=== PATIENT | female | born 1940 | race Caucasian/White ===

== ENCOUNTER 2016-10-16 11:40 | Inpatient (IN) | payer OTHER ==
[~2016-10-16] VITALS: Ht 162.6 cm; Wt 93.4 kg
--- NOTE | 2016-10-16 20:35 | NUR ---
GPS ADMISSION NOTE ADMITTED THIS 76 Y/O FEMALE FROM [facility] . PATIENT ADMITTED ON A 5150 HOLD FOR DTS. PER HOLD PATIENT STATES THAT SHE IS UNDER STRESS IN HER FINANCIAL SITUATION. PATIENT STATES " I DON'T KNOW WHAT I HAVE TO LIVE FOR". PATIENT STATED IF DISCHARGED HOME, WILL TRY TO KILL HERSELF. PATIENT HAS ACCESS TO NARCOTIC MEDICATION. PATIENT BREATHING IS UNLABORED. NO SOB. V/S STABLE. UPON FACE TO FACE. PATIENT IS ALERT AND ORIENTED X3. AMBULATORY WITH WALKER. PATIENT IS UNDER THE PSYCHIATRIC CARE OF DR. LINDA AND THE MEDICAL CARE OF DR GLOVER. PATIENT BELONGINGS WERE INVENTORIED AND CHECKED FOR CONTRABAND. CONTRABAND FOUND AND PUT IT IN SAFE LOCKED CABINET. SKIN/BODY ASSESSMENT DONE. NOTED REDNESS ON ABDOMINALFOLDS, BREASTFOLDS, COCCYX AREA. WOUND CONSULT TRIGGERED. MRSA DONE. PATIENT BED SIDE RAILS ARE UP X 2 FOR SAFETY. PATIENT BED IS LOCKED AND IN LOW POSITION. WILL CONTINUE TO MONITOR FOR SAFETY AND BEHAVIOR [id number].
[2016-10-16] MEDS ORDERED: MAGNESIUM HYDROXIDE 30 ML UDC PO PRN (22:00)
[2016-10-16] MEDS ORDERED: LORAZEPAM 0.5 MG TABLET PO PRN (22:00)
[2016-10-16] MEDS ORDERED: TEMAZEPAM 7.5 MG CAPSULE ONE (23:28)
[2016-10-16] MEDS: TEMAZEPAM 7.5 MG CAPSULE PO PRN (23:33)
[2016-10-16] MEDS ORDERED: BUPR-51 PO (23:55)
[2016-10-16] MEDS ORDERED: GABA600T2 PO (23:55)
[2016-10-16] MEDS ORDERED: OMEP40CA37 PO (23:55)
[2016-10-16] MEDS ORDERED: NAPR500T3 PO (23:55)
[2016-10-16] MEDS ORDERED: LISI10TA5 PO (23:55)
[2016-10-16] MEDS ORDERED: MORP30TA PO (23:55)
[2016-10-16] MEDS ORDERED: ASPI325T2 PO (23:55)
[2016-10-16] MEDS ORDERED: MORP15TA7 PO (23:55)
[2016-10-16] MEDS ORDERED: DULO60CA45 PO (23:55)
[2016-10-16] MEDS ORDERED: OXYB5TAB11 PO (23:55)
[2016-10-17] MEDS ORDERED: ACETAMINOPHEN 325 MG TABLET ONE (00:38)
[2016-10-17] MEDS: ACETAMINOPHEN 325 MG TABLET PO PRN ×2 (00:42→21:03)
[2016-10-17 02:42] VITALS: BP 125/73
[2016-10-17 07:12] LABS: BASOPHILS % (AUTO) 0.4 % (0.0-2.0); EOSINOPHILS # (AUTO) 0.2 /CMM (0.0-0.7); EOSINOPHILS % (AUTO) 2.7 % (0.0-6.0); HEMATOCRIT 46 % (33-45); HEMOGLOBIN 15.4 g/dL (11.5-14.8); LYMPHOCYTES # (AUTO) 1.9 /CMM (0.8-4.8); LYMPHOCYTES % (AUTO) 25.6 % (20.0-44.0); MEAN CORPUSCULAR HEMOGLOBIN 31 PG (26.0-33.0); MEAN CORPUSCULAR HGB CONC 34 g/dl (31.0-36.0); MEAN CORPUSCULAR VOLUME 91 fL (82-100); MONOCYTES # (AUTO) 0.7 /CMM (0.1-1.30); MONOCYTES % (AUTO) 8.8 % (2.0-12.0); NEUTROPHILS # (AUTO) 4.7 /CMM (1.8-8.9); NEUTROPHILS % (AUTO) 62.5 % (43.0-81.0); PLATELET COUNT (AUTO) 203 /CMM (150-450); RDW COEFFICIENT OF VARIATION 13.5 (11.5-15.0); RED BLOOD CELL COUNT(AUTO) 5.04 MIL/uL (4.0-5.2); WHITE BLOOD COUNT (AUTO) 7.5 K/uL (4.3-11.0)
[2016-10-17 07:40] LABS: ALBUMIN 3.6 g/dL (3.4-5.0); BILIRUBIN,TOTAL 0.5 mg/dL (0.2-1.0); CALCIUM, SERUM 9.3 mg/dL (8.5-10.1); CREATININE 0.8 mg/dL (0.6-1.3); POTASSIUM 3.9 mmol/L (3.5-5.1); TOTAL PROTEIN, SERUM 6.9 g/dL (6.4-8.2)
[2016-10-17 08:00] VITALS: BP 113/66
[2016-10-17] MEDS: PANTOPRAZOLE 40 MG TABLET.DR PO SCH ×2 (08:22→10:56)
[2016-10-17] MEDS: MORPHINE SULFATE IR 15 MG TABLET PO PRN ×3 (08:50→23:35)
[2016-10-17] MEDS: DULOXETINE HCL 30 MG CAPSULE.DR PO SCH (09:00)
[2016-10-17] MEDS: ASPIRIN 325 MG TABLET PO SCH (09:00)
[2016-10-17] MEDS ORDERED: DULOXETINE HCL 30 MG CAPSULE.DR PO SCH (09:00)
[2016-10-17] MEDS: LISINOPRIL (10MG) 10 MG TABLET PO SCH (09:00)
[2016-10-17] MEDS: NAPROXEN 500 MG TABLET PO SCH ×2 (09:00→16:13)
--- NOTE | 2016-10-17 09:39 | NUR ---
GPS RN NOTE: PATIENT WAS SEEN AND EXAMINE BY DR GLOVER PT GETS EASILY AGITATED, RESTLESS IRRITABLE, SCREAMING AND YELLING AT TIMES REFUSED MORNING MEDICATIONS PT STATED" IM TAKING ONLY MORPHINE , GERD MEDICATION AND ATIVAN " THATS ALL I NEED PT REQUESTED FLEET ENEMA DR HANSON NO ORDERS AT THIS TIME WILL CONTINUE MONITORING FOR SAFETY AND BEHAVIOR Q 15 MIN
--- NOTE | 2016-10-17 12:32 | NUR ---
GPS RN NOTE: PATIENT REFUSED SKIN ASSESSMENT , Z GUARD EXPLAIN RISK AND BENEFITS PT CONTINUE TO REFUSED
[2016-10-17] MEDS ORDERED: GABAPENTIN 300 MG CAPSULE PO SCH (14:30)
[2016-10-17] MEDS ORDERED: BISACODYL SUPP (10 MG) 10 MG/SUPP.RECT SUPP.RECT RC PRN (15:00)
[2016-10-17] MEDS ORDERED: BISACODYL (5 MG) 5 MG TABLET.DR PO PRN (15:00)
[2016-10-17] MEDS: POLYETHYLENE GLYCOL 3350 17 GM POWD.PACK PO SCH ×2 (15:00→22:26)
[2016-10-17] MEDS: QUETIAPINE FUMARATE 25 MG TABLET PO SCH (16:13)
[2016-10-17] MEDS: LORAZEPAM 0.5 MG TABLET PO PRN (16:13)
--- NOTE | 2016-10-17 17:35 | NUR ---
GPS RN NOTE: PATIENT COMPLAINING OF GENERALIZED PAIN MORPHINE 30 MG PO PRN Q 8 HR WILL CONTINUE MONITORING FOR SAFETY AND BEHAVIOR Q 15 MIN
[2016-10-17 20:00] VITALS: BP 143/77
[2016-10-17] MEDS ORDERED: TRAZODONE 50 MG TABLET PO SCH (22:00)
[2016-10-17] MEDS: TEMAZEPAM 7.5 MG CAPSULE PO PRN (22:27)
[2016-10-18] MEDS: LORAZEPAM 0.5 MG TABLET PO PRN ×3 (00:31→17:26)
[2016-10-18] MEDS: MAG HYDROX/AL HYDROX/SIMETH 30 ML UDC PO PRN (04:58)
[2016-10-18] MEDS: ACETAMINOPHEN 325 MG TABLET PO PRN (04:58)
[2016-10-18 08:00] VITALS: BP 157/75
[2016-10-18] MEDS: DULOXETINE HCL 30 MG CAPSULE.DR PO SCH (08:11)
[2016-10-18] MEDS: PANTOPRAZOLE 40 MG TABLET.DR PO SCH (08:12)
[2016-10-18] MEDS: LISINOPRIL (10MG) 10 MG TABLET PO SCH (08:13)
[2016-10-18] MEDS: QUETIAPINE FUMARATE 25 MG TABLET PO SCH ×4 (08:14→21:46)
[2016-10-18] MEDS: MORPHINE SULFATE IR 15 MG TABLET PO PRN ×3 (08:14→23:45)
[2016-10-18] MEDS: ASPIRIN 325 MG TABLET PO SCH (08:15)
[2016-10-18] MEDS: NAPROXEN 500 MG TABLET PO SCH ×2 (08:17→16:29)
--- NOTE | 2016-10-18 10:39 | NUR ---
GPS RN NOTE: PT REQUESTING MEDICATIONS FOR ANXIETY ATIVAN 1 MG PO PRN GIVEN ORDERS WILL CONTINUE MONITORING FOR SAFETY AND BEHAVIOR Q 15 MIN
[2016-10-18] MEDS ORDERED: Z GUARD REMEDY 2 OZ OINT TP PRN (11:00)
[2016-10-18 11:06] VITALS: BP 124/82
--- NOTE | 2016-10-18 17:27 | NUR ---
GPS RN NOTE: PATIENT IN THE ROOM AGITATED VERBALLY ABUSIVE, HYPERVERBAL THREATENING STAFF, THROUGH PITCH OR WATER ON THE FLOOR UNABLE TO CONTROL BEHAVIOR ATIVAN 1 MG PO PRN Q 6 HR GIVEN WILL CONTINUE MONITORING FOR SAFETY AN BEHAVIOR Q 15 MIN
[2016-10-18] MEDS ORDERED: GABAPENTIN 300 MG CAPSULE PO SCH (18:59)
[2016-10-18] MEDS: GABAPENTIN 300 MG CAPSULE PO SCH (19:04)
[2016-10-18 20:16] VITALS: BP 121/72
[2016-10-18] MEDS: POLYETHYLENE GLYCOL 3350 17 GM POWD.PACK PO SCH (21:45)
--- NOTE | 2016-10-19 00:27 | NUR ---
Pt has been quite anxious, argumentative about pain meds, & with impaired insight/judgment. She is compliant with meds.
[2016-10-19] MEDS: GABAPENTIN 300 MG CAPSULE PO SCH ×4 (01:06→21:01)
[2016-10-19 01:24] LABS: APPEARANCE,URINE CLEAR (CLEAR); BILIRUBIN,URINE NEGATIVE (NEGATIVE); BLOOD, URINE NEGATIVE Ery/uL (NEGATIVE); COLOR,URINE YELLOW (YELLOW); KETONES,URINE NEGATIVE (NEGATIVE); LEUKOCYTE ESTERASE ,URINE NEGATIVE (NEGATIVE); NITRITE, URINE NEGATIVE (NEGATIVE); PROTEIN,URINE NEGATIVE (NEGATIVE); UGLUCOSE NEGATIVE (NEGATIVE); UROBILINOGEN,URINE 0.2 EU/dL (0.2)
[2016-10-19] MEDS: ACETAMINOPHEN 325 MG TABLET PO PRN (02:49)
[2016-10-19] MEDS: LORAZEPAM 0.5 MG TABLET PO PRN ×4 (03:16→22:23)
--- NOTE | 2016-10-19 03:18 | NUR ---
GPS RN NOTE, PATIENT HAS A COMPLAINT OF FEELING ANXIOUS AND WOULD LIKE MEDICATION AT THIS TIME. PATIENT VITAL SIGNS ARE STABLE. GAVE ATIVAN 1MG PO Q6HR PRN ORDERED. WILL REASSESS FOR ANXIETY AND I WILL CONTINUE TO MONITOR THIS PATIENT.
[2016-10-19 08:00] VITALS: BP 145/72
[2016-10-19] MEDS: QUETIAPINE FUMARATE 25 MG TABLET PO SCH ×4 (08:00→21:07)
[2016-10-19] MEDS: ASPIRIN 325 MG TABLET PO SCH (08:05)
[2016-10-19] MEDS: DULOXETINE HCL 30 MG CAPSULE.DR PO SCH (08:06)
[2016-10-19] MEDS: PANTOPRAZOLE 40 MG TABLET.DR PO SCH (08:06)
[2016-10-19] MEDS: NAPROXEN 500 MG TABLET PO SCH ×2 (08:07→16:29)
[2016-10-19] MEDS: MORPHINE SULFATE IR 15 MG TABLET PO PRN ×3 (08:08→23:37)
[2016-10-19] MEDS: LISINOPRIL (10MG) 10 MG TABLET PO SCH (08:31)
--- NOTE | 2016-10-19 08:39 | NUR ---
GPS/RN PATIENT REPORTS 10/10 GENERALIZED PAIN, REQUESTED MORPHINE PO, ADMINISTERED ORDERED, WILL CONTINUE TO MONITOR.
--- NOTE | 2016-10-19 09:12 | NUR ---
GPS/RN PATIENT REPORTS NO BM FOR 7 DAYS, HOWEVER, DOCUMENTATION STATES SHE HAD BM THIS A.M. ADMINISTERED DUCOLAX 2 TABS REQUESTED,WILL CONTINUE TO MONITOR.
--- NOTE | 2016-10-19 09:22 | NUR ---
GPS/RN PATIENT PRESENTS WITH ACUTE AGITATION, ANXIETY, VERBALLY ABUSIVE, ADMINISTERED ATIVAN PO ORDERED, WILL CONTINUE TO MONITOR.
--- NOTE | 2016-10-19 11:55 | NUR ---
Initial discharge plan: Pt.lives with her , Cain Goodman [phone] at [address] [facility] [id number] and will return home upon discharge. SW spoke with and he is supportive and wants pt. home. CARLOS will follow up with MD and pt. and will schedule for safe and proper discharge.
--- NOTE | 2016-10-19 15:51 | NUR ---
GPS/RN PATIENT PRESENTS WITH ACUTE AGITATION, ANXIETY,CONTINUES TO BE VERBALLY ABUSIVE, UNABLE TO REDIRECT, ADMINISTERED ATIVAN PO ORDERED, WILL CONTINUE TO MONITOR.
--- NOTE | 2016-10-19 16:06 | NUR ---
UR Update: SANAM faxed clinicals (H&P's, medication list, 5150 hold, face sheet) to [facility] PHONE [phone] FAX# [phone]. Sanam will follow up. AUTH# [id number].
--- NOTE | 2016-10-19 16:30 | NUR ---
GPS/RN PATIENT IRRITABLE, AGITATED, REPORTS 10/10 GENERALIZED PAIN, REQUESTED MORPHINE PO, ADMINISTERED ORDERED, WILL CONTINUE TO MONITOR.
[2016-10-19 16:41] VITALS: BP 164/89
--- NOTE | 2016-10-19 17:14 | NUR ---
GPS/RN ADMINISTERED WATER ENEMA X [address] GLOVER, TOLERATED WELL, NO DISTRESS, WILL CONTINUE TO MONITOR.
[2016-10-19 20:00] VITALS: BP 119/70
[2016-10-19] MEDS: MAG HYDROX/AL HYDROX/SIMETH 30 ML UDC PO PRN (21:01)
--- NOTE | 2016-10-19 21:01 | NUR ---
GPS RN NOTES: PATIENT COMPLAINED OF "GERD PAIN". ADMINISTERED MAALOX PO. WILL CONT TO MONITOR.
[2016-10-19] MEDS: POLYETHYLENE GLYCOL 3350 17 GM POWD.PACK PO SCH (22:00)
--- NOTE | 2016-10-19 22:22 | NUR ---
RN NOTES: PATIENT WALKED TOWARDS NURSES' STATION, APPEARS VERY HOSTILE AND RESTLESS, STATES, "I CAN'T TAKE THIS ANYMORE, YOU ARE PLAYING GAMES WITH MY MEDICATIONS," AND PATIENT KEPT SAYING THAT SHE IS IN PAIN ALL OVER, AND THAT SHE WAS BEING "FORGOTTEN". REITERATED TO HE THAT MORPHINE IS EVERY 8 HRS, AND THE LAST TIME IT WAS GIVEN WAS AT 1628. PATIENT THEN SAID THAT SHE IS HAVING MORPHINE WITHDRAWALS, AND CONTINUES TO BE VERBALLY ABUSIVE. REDIRECTED TO BED AND GIVEN ATIVAN. PROVIDED FOR SAFETY, SITTER AT BEDSIDE. WILL CONT TO MONITOR.
--- NOTE | 2016-10-19 23:25 | NUR ---
GPS RN NOTES: PATIENT APPROACHED THE NURSE IN THE STATION DEMANDING FOR HER MORPHINE MEDICATION. SHE STATED IN A LOUD VOICE, "I WANT MY MEDICATION RIGHT NOW, YOU GUYS ARE KEEPING THE MEDICATIONS AWAY FROM ME!" SILVIA ARCEO EXPLAINED TO HER THAT HER MEDICATION WILL NOW BE GIVEN IT IS ALREADY DUE TO BE GIVEN. PATIENT HAD THE MORPHINE SULFATE IR 15MG TAB AT 1628PM DURING THE DAY SHIFT. WHILE PATIENT WAS WAITING OUTSIDE THE NURSES STATION, SHE KEEPS ON TALKING THAT HER ROOMMATE HAD THE PRIVILEGE OF USING HER CELLPHONE AND THAT HER ROOMMATE IS BEING NOISY IN THE ROOM SHE IS TALKING ON THE PHONE. PATIENT STARTING TO BECOME AGGRESSIVE, THREATENING IN LOUD VOICE. NURSES TRIED TO REDIRECT THE PATIENT TO THE ROOM, BUT PATIENT REFUSED TO BE HELPED, INSTEAD SHE SCREAMED AND YELLED AT THE NURSES EVEN LOUDER. PATIENT WAS THEN ESCORTED AND PHYSICALLY HELD SHE WAS REDIRECTED BACK TO HER ROOM. 2337- AT THE PATIENT'S ROOM, SILVIA ARCEO ADMINISTERED THE MORPHINE SULFATE MEDICATION ORDERED. 2340- PATIENT STORMED INTO THE NURSES STATION, DEMANDING THAT SHE WANTS TO CALL THE POLICE AND 911. SHE WAS ALREADY AGITATED, YELLING AND SCREAMING AT THE STAFF, THREATENING THAT INVESTIGATION WILL BE DONE TOMORROW. NURSE DATABASE DBA, JAVI AWARE OF THE SITUATION. 2354- DR. LINDA INFORMED OF THE PATIENT'S BEHAVIOR, WITH ORDERS TO GIVE ZYPREXA 3MG IM ONE TIME DOSE. PATIENT REFUSED TO HAVE THE MEDICATION ADMINISTERED, SHE WAS THEN ASSISTED PHYSICALLY INTO THE BED SO MEDICATION CAN BE ADMINISTERED. PATIENT REFUSED TO HAVE HER VITAL SIGNS CHECKED. 1:1 SITTER CONTINUED FOR PATIENT'S SAFETY.
--- NOTE | 2016-10-19 23:37 | NUR ---
RN NOTES: PATIENT WENT UP TO NURSES' STATION, VERY HOSTILE AND DEMANDED FOR HER MORPHINE, STATING SHE HAS "PAIN EVERYWHERE". CALMLY TOLD PATIENT THAT IT IS DUE AT THIS TIME AND WILL GIVE IT TO HER NOW. PATIENT CONTINUES TO BE VERBALLY ABUSIVE TO RN AND MERCHANT PATROLLER, AND SAID THAT THE OTHER PATIENT IN THE ROOM WITH HER "IS LIKE A BALDEV, USING HER PHONE!". TOLD PATIENT THAT SHE WILL BE GIVEN MORPHINE PO IN HER ROOM, BUT PATIENT REFUSED TO MOVE FROM WHERE SHE WAS STANDING AT THE STATION, WITH A THREATENING POSTURE. CNAS THEN TRIED TO REDIRECT HER TO HER ROOM, TO WHICH SHE REACTED ANGRILY AND KEPT YELLING. ONCE IN THE ROOM, SHE TOOK HER MORPHINE, THEN DEMANDED LOUDLY FOR A PHONE, SINCE SHE SAID SHE WILL CALL THE POLICE. PROVIDED FOR SAFETY. WILL CONT TO MONITOR.
[2016-10-19] MEDS ORDERED: OLANZAPINE 10 MG VIAL IM ONE (23:55)
[2016-10-20] MEDS ORDERED: OLANZAPINE 10 MG VIAL IM ONE
[2016-10-20] MEDS: GABAPENTIN 300 MG CAPSULE PO SCH ×3 (01:30→15:38)
[2016-10-20] MEDS: ACETAMINOPHEN 325 MG TABLET PO PRN (04:35)
--- NOTE | 2016-10-20 04:35 | NUR ---
GPS RN NOTE: PATIENT NOW AWAKE, ASSISTED BY ARMATURE INSPECTOR TO BATHROOM, AND WAS COMPLAINING THAT SHE HAS A HEADACHE. PATIENT ESCORTED BACK TO BED. TYLENOL 650 MG PO GIVEN TO PATIENT. PATIENT THEN ASKED WHEN SHE CAN HAVE HER MORPHINE, TO WHICH SHE WAS REMINDED THAT 0700 AM IS THE NEXT TIME SHE CAN HAVE IT. PATIENT STARTED DEMANDING FOR HER PHONE, AND ASKED FOR ANOTHER ATIVAN. WILL CONT TO MONITOR.
[2016-10-20] MEDS: LORAZEPAM 0.5 MG TABLET PO PRN ×2 (04:44→12:00)
--- NOTE | 2016-10-20 05:01 | NUR ---
RN NOTES: ATIVAN 1 MG PULLED OUT FOR PATIENT, HOWEVER, NOT GIVEN PATIENT IS IN BED, NOW ASLEEP. WILL CONT TO MONITOR. SITTER AT BEDSIDE.
--- NOTE | 2016-10-20 06:51 | NUR ---
RN NOTES: ATTEMPTED TO CALL DAUGHTER, NÉSTOR SOLIS, TO INFORM HER OF THE INCIDENT LAST NIGHT WHEN PATIENT BECAME COMBATIVE AND NECESSITATED A ONE TIME DOSE OF ZYPREXA IM. NO ANSWER. LEFT MESSAGE INSTEAD AND AWAITING CALL BACK.
[2016-10-20] MEDS: QUETIAPINE FUMARATE 25 MG TABLET PO SCH ×3 (08:29→16:17)
[2016-10-20] MEDS: NAPROXEN 500 MG TABLET PO SCH ×2 (08:29→16:17)
[2016-10-20] MEDS: DULOXETINE HCL 30 MG CAPSULE.DR PO SCH (08:29)
[2016-10-20] MEDS: ASPIRIN 325 MG TABLET PO SCH (08:29)
[2016-10-20] MEDS: LISINOPRIL (10MG) 10 MG TABLET PO SCH (08:30)
[2016-10-20 08:46] VITALS: BP 130/67
[2016-10-20] MEDS: MORPHINE SULFATE IR 15 MG TABLET PO PRN (09:42)
--- NOTE | 2016-10-20 09:42 | NUR ---
GPS/RN PATIENT REPORTS 10/10 GENERALIZED PAIN, ADMINISTERED MORPHINE 30 MG PO ORDERED, WILL CONTINUE TO MONITOR.
--- NOTE | 2016-10-20 10:03 | NUR ---
Per patient's behavior last night, psychiatrist is postponing discharge for today. CARLOS called the patient's contact dtr Mirela Faust ([phone]) but she did not answer and CARLOS left a message stating that psychiatrist was postponing discharge and she was not discharging today. Left call back details. CARLOS will attempt to contact daughter again at a later time. Addendum: 10/20/16 at 1017 by BRITTANI GONZALEZ Spoke to dtr by phone. She stated that she will notify patient's that discharge is being postponed. CARLOS informed her that assigned CARLOS Robb will keep her posted as to discharge date.
--- NOTE | 2016-10-20 12:00 | NUR ---
GPS/RN PATIENT IS ANXIOUS, AGITATED, YELLING, CURSING, ADMINISTERED ATIVAN 1 MG PO ORDERED, WILL CONTINUE TO MONITOR.
--- NOTE | 2016-10-20 13:57 | NUR ---
CARLOS spoke with Cain Goodman [phone] who insisted that pt. should return home as she will do better at home. CARLOS spoke with MD and pt's discharge has been confirmed for today.
[2016-10-20 16:00] VITALS: BP 112/77
--- NOTE | 2016-10-20 16:00 | NUR ---
AT APPROXIMATELY 1030 PATIENT REPORTED MISSING PARTIAL/UPPER DENTURES TO RJ. PER NEEDLE MAKER/RJ AWAN, THERE WERE NO DENTURES NOTED AND NOTHING REPORTED FROM PREVIOUS SHIFT. PER NEEDLE MAKER/RJ RODRIGUEZ, ON 10/19/16 DURING THE DAY SHIFT, SHE TOOK THEM OUT AFTER DINNER, WASHED THEM AND PUT THEM IN THE PLASTIC CONTAINER AT THE BEDSIDE. STAFF CHECKED PATIENTS ROOM THOROUGHLY AND ALSO, ALL OTHER ROOMS IN UNIT IN ATTEMPT TO LOCATE THE DENTURES BUT UNFORTUNATELY, STAFF WAS UNABLE TO LOCATE THEM AT THIS TIME. KITCHEN WAS CALLED AND ASKED IF ANY DENTURES WERE FOUND, STATED THAT NOTHING WAS FOUND AT THIS TIME. WILL FOLLOW UP WITH SUPERINTENDENT PLANT STAFF FOR ANY ADDITIONAL INFORMATION, CHARGE NURSE AND DIRECTOR OF UNIT AWARE, WILL ENDORSE TO ONCOMING SHIFT TO REPORT TO LEGAL ADVISER REGARDING OUTCOME IN THE A.M. Addendum: 10/20/16 at 181 by LUZ KINCAID RN PARTIAL/UPPER/LOWER DENTURES Addendum: 10/20/16 at 192 by LUZ KINCAID RN UNABLE TO LOCATE PATIENTS ISIS CHARGE NURSE AWARE, REPORTED TO ONCOMING SHIFT TO ENDORSE THE OUTCOME OF SITUATION TO DAY SHIFT.
--- NOTE | 2016-10-20 19:32 | NUR ---
GPS/RN PATIENT CLEARED FOR DISCHARGE BY DR LINDA AND DR RICHARD. REFUSED TO SIGN D/C PAPER CO SIGNED BY 2 RN, PRESCRIPTIONS AND PACKET EXPLAINED TO PATIENT AND , VERBALIZED UNDERSTANDING, REFUSED D/C PHOTOS X 3, EXPLAINED RISKS AND BENEFITS. PSYCHIATRIC TREATMENT PLANS MET, PATIENT DENIES SI/HI/AH UPON DISCHARGE, LEFT UNIT WITH AUTOMOTIVE FUEL SYSTEMS CONVERTER AND AT SIDE.
--- NOTE | 2016-10-20 19:41 | NUR ---
NOC SHIFT STAFF FOUND THE PATIENT'S CANE IN THE ASSIGNED PATIENT CABINET.WILL ENDORSE THE CANE TO THE AM SHIFT TOMORROW.
--- NOTE | 2016-10-20 19:47 | NUR ---
GPS/RN CANE FOUND BY SENIOR WINDOWS SYSTEMS ADMINISTRATOR RIGGING FOREMAN IN [facility], THEY WILL ENDORSE TO DAY SHIFT TO FOLLOW UP WITH PATIENT.
--- NOTE | 2016-10-21 09:45 | NUR ---
Discharge note: Pt. was discharged yesterday around 7PM back home with ,Cain Goodman [phone] at [address] [facility] [id number] . picked her up via private car. 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 Evans [address] [address] [phone] Guevara Address: [address] [place] [phone] on 10/21/16 at 1:00PM (per ). SW provided a referral to [address] [address] to follow up with a psychiatrist, though, pt's states she is getting all the care she needs from the doctors mentioned above. SW signed discharge paperwork and discharge instructions have been provided to the pt. and prior to discharge. Pt. was calm and cooperative and agreeable with the discharge plan and denied having suicidal/homicidal ideations.
--- NOTE | 2016-10-21 09:52 | NUR ---
UR Update: CARLOS faxed discharge information to [facility] PHONE [phone] FAX# [phone]. AUTH#[id number]
== END 2016-10-20 19:46 | disposition home or self-care (01) | DRG 885 ==
LOC: GPS 21:14
PROVIDERS: ADMIT Psychiatry & Neurology Psychosomatic Medicine; ATTEND Internal Medicine
DX: F31.9 Bipolar disorder, unspecified (principal); E44.0 Moderate protein-calorie malnutrition; R45.851 Suicidal ideations; G89.4 Chronic pain syndrome; E03.9 Hypothyroidism, unspecified; E66.9 Obesity, unspecified; E78.5 Hyperlipidemia, unspecified; I10 Essential (primary) hypertension; K21.9 Gastro-esophageal reflux disease without esophagitis; K59.00 Constipation, unspecified; Z91.19 Patient's noncompliance with other medical treatment and regimen; Z68.35 Body mass index [BMI] 35.0-35.9, adult; F11.988 Opioid use, unspecified with other opioid-induced disorder
CPT/HCPCS: 36415; 80053-TC; 81000-TC; 84443-TC; 85025-TC; 87081-TC; J3490